=== PATIENT | female | born 2000 | race Caucasian/White ===

== ENCOUNTER 2024-03-25 18:27 | Emergency (ER) | payer OTHER ==
[2024-03-25 19:11] LABS: Urine Bacteria <20 /HPF (<20); Urine Bilirubin NEGATIVE (Negative); Urine Blood Negative (Negative); Urine Clarity Extremely Turbid (Clear); Urine Color Yellow (Yellow); Urine Culture Reflex Order NOT NEEDED; Urine Glucose NEGATIVE (Negative); Urine Ketones NEGATIVE (Negative); Urine Microscopic Reflex YN ORDER UMIC; Urine Mucus Slight /HPF (None Seen); Urine Nitrite NEGATIVE (Negative); Urine Protein 1+ (Negative); Urine RBC <5 /HPF (None Seen); Urine Urobilinogen Normal (Normal); Urine WBC <5 /HPF (<5); Urine WBC Clump Rare /HPF (None Seen)
[2024-03-25] MEDS ORDERED: ONDANSETRON 4 MG/2 ML VIAL ONE (19:32)
[2024-03-25] MEDS ORDERED: CIPROFLOXACIN HCL 500 MG TAB ONE (19:33)
[2024-03-25] MEDS ORDERED: MORPHINE 2 MG/ML SYR ONE (19:33)
[2024-03-25] MEDS ORDERED: NA CHLORIDE 0.9% 1,000 ML ONE (19:33)
[2024-03-25 19:50] LABS: Albumin 3.3 g/dL (3.4-5.0); Albumin/Globulin Ratio 0.6 (1.1-1.8); Bilirubin Total 0.3 mg/dL (0.2-1.0); Globulin 5.4 g/dL (2.3-3.5); Protein, Total 8.7 g/dL (6.4-8.2)
[2024-03-25 19:54] LABS: Absolute Eosinophils 0.1 K/uL (0-0.5); Absolute Lymphocytes (CBC) 2.3 K/uL (0.7-4.9); Absolute Monocytes 0.6 K/uL (0.1-1.3); Absolute Neutrophil 7.2 K/uL (1.8-8.0); Basophils % 0.3 % (0-1.3); Eosinophils % 0.8 % (0-4.4); Hematocrit 37.8 % (36.0-45.0); Hemoglobin 12.2 g/dL (12.0-15.0); Lymphocytes % 22.6 % (15.3-44.8); MCH 23.2 pg (27.0-35.0); MCHC 32.3 g/dL (32.0-36.0); MCV 71.7 fL (80-100); MPV 7.8 fL (7.6-11.3); Monocytes % 5.9 % (3.3-12.3); Neutrophils % 70.4 % (41.7-73.7); Nucleated Red Blood Cells % 0.1 % (0-0); Platelets 404 thou/uL (152-406); RBC Red Blood Cell Count 5.27 M/uL (3.86-4.86); Red Cell Distribution Width 16.7 % (12.1-15.2)
--- NOTE | 2024-03-25 20:45 | EDPHYS ---
Physician Documentation [facility] Name: Shayna Collins Age: 23 yrs Sex: Female : 2000 Arrival Date: 03/25/2024 Time: 18:27 Bed 5 Private MD: ED Physician Ramos Hansen HPI: 03/25 19:02 This 23 yrs old Female presents to ER via Ambulatory with complaints of deangelo Abdominal Pain, Diarrhea. 19:02 The patient presents to the emergency department with diarrhea, that is intermittent, 5 deangelo times since the onset of symptoms, abdominal pain, of the right upper quadrant, left upper quadrant, right lower quadrant and left lower quadrant. Onset: The symptoms/episode began/occurred 1 day(s) ago. Possible causes: unknown. The symptoms are aggravated by nothing. The symptoms are alleviated by nothing. Associated signs and symptoms: Pertinent positives: abdominal pain. Severity of symptoms: At their worst the symptoms were mild in the emergency department the symptoms are unchanged. The patient has not experienced similar symptoms in the past. CONE SEWER: 19:11 Not al5 Historical: - Allergies: 18:47 No Known Allergies; tm6 - PMHx: 18:47 None; tm6 - PSHx: 18:47 None; tm6 - Immunization history:: Flu vaccine is not up to date. - Infectious Disease History:: Denies. - Social history:: Smoking status: Patient denies any tobacco usage or history of. ROS: 19:04 Constitutional: Negative for fever, chills, and weight loss, Eyes: Negative for injury, deangelo pain, redness, and discharge, ENT: Negative for injury, pain, and discharge, Neck: Negative for injury, pain, and swelling, Cardiovascular: Negative for chest pain, palpitations, and edema, Respiratory: Negative for shortness of breath, cough, wheezing, and pleuritic chest pain, Back: Negative for injury and pain, : Negative for injury, bleeding, discharge, and swelling, MS/Extremity: Negative for injury and deformity, Skin: Negative for injury, rash, and discoloration, Neuro: Negative for headache, weakness, numbness, tingling, and seizure, Psych: Negative for depression, anxiety, suicide ideation, homicidal ideation, and hallucinations, Allergy/Immunology: Negative for hives, rash, and allergies, Endocrine: Negative for neck swelling, polydipsia, polyuria, polyphagia, and marked weight changes, Hematologic/Lymphatic: Negative for swollen nodes, abnormal bleeding, and unusual bruising, 19:04 Abdomen/GI: Positive for abdominal pain, diarrhea, Exam: 19:04 Constitutional: This is a well developed, well nourished patient who is awake, alert, deangelo and in no acute distress. Head/Face: Normocephalic, atraumatic. Eyes: Pupils equal round and reactive to light, extra-ocular motions intact. Lids and lashes normal. Conjunctiva and sclera are non-icteric and not injected. Cornea within normal limits. Periorbital areas with no swelling, redness, or edema. ENT: Nares patent. No nasal discharge, no septal abnormalities noted. Tympanic membranes are normal and external auditory canals are clear. Oropharynx with no redness, swelling, or masses, exudates, or evidence of obstruction, uvula midline. Mucous membranes moist. Neck: Trachea midline, no thyromegaly or masses palpated, and no cervical lymphadenopathy. Supple, full range of motion without nuchal rigidity, or vertebral point tenderness. No Meningismus. Chest/axilla: Normal chest wall appearance and motion. Nontender with no deformity. No lesions are appreciated. Cardiovascular: Regular rate and rhythm with a normal S1 and S2. No gallops, murmurs, or rubs. Normal PMI, no JVD. No pulse deficits. Respiratory: Lungs have equal breath sounds bilaterally, clear to auscultation and percussion. No rales, rhonchi or wheezes noted. No increased work of breathing, no retractions or nasal flaring. Abdomen/GI: Soft, non-tender, with normal bowel sounds. No distension or tympany. No guarding or rebound. No evidence of tenderness throughout. Back: No spinal tenderness. No costovertebral tenderness. Full range of motion. Skin: Warm, dry with normal turgor. Normal color with no rashes, no lesions, and no evidence of cellulitis. MS/ Extremity: Pulses equal, no cyanosis. Neurovascular intact. Full, normal range of motion., bilateral aka Neuro: Awake and alert, GCS 15, oriented to person, place, time, and situation. Cranial nerves II-XII grossly intact. Motor strength 5/5 in all extremities. Sensory grossly intact. Cerebellar exam normal. Normal gait. Psych: Awake, alert, with orientation to person, place and time. Behavior, mood, and affect are within normal limits. 19:04 Musculoskeletal/extremity: DVT Exam: No signs of deep vein thrombosis. no pain, no swelling, no tenderness, negative Homans' sign noted on exam, no appreciated bluish discoloration, no erythema, no increased warmth, Vital Signs: 18:46 BP 160 / 118; Pulse 102; Resp 19; Temp 98.9(O); Pulse Ox 98% on R/A; Weight 109.77 kg; tm6 Height 5 ft. 4 in. ; Pain 10/10; 19:29 BP 137 / 81; Pulse 87; Resp 16; Pulse Ox 97% on R/A; al5 19:30 BP 147 / 87; Pulse 85; Resp 18; Pulse Ox 98% on R/A; al5 19:45 BP 133 / 87; Pulse 78; Resp 16; Pulse Ox 98% on R/A; al5 20:00 BP 135 / 76; Pulse 79; Resp 17; Pulse Ox 99% on R/A; al5 21:01 BP 131 / 82; Pulse 76; Resp 17; Pulse Ox 98% ; cp4 18:46 Body Mass Index 41.54 (109.77 kg, 162.56 cm) tm6 18:46 Pain Scale: Adult tm6 MDM: 18:30 Medical Screening Exam initiated deangelo 19:05 Differential diagnosis: Nonspecific abd pain, gastritis, cholecystitis, pancreatitis, deangelo viral gastroenteritis, gastroenteritis, Cholelithiasis. Data reviewed: vital signs, nurses notes, lab test result(s). Consideration of Admission/Observation Escalation of care including admission/observation considered. I considered the following discharge prescriptions or medication management in the emergency department Medications were administered in the Emergency Department. See MAR. Test considered but Not performed: CT: no ct abd/pel. Historians other than the Patient: Parent: mom very well informed. Care significantly affected by the following chronic conditions: Obesity. 03/25 18:30 Order name: CBC with Diff; Complete Time: 20:42 [facility] 03/25 20:42 Interpretation: Normal except: RBC 5.27; MCV 71.7; MCH 23.2; RDW 16.7. cp 03/25 18:30 Order name: CMP; Complete Time: 20:42 [facility] 03/25 18:30 Order name: Lipase; Complete Time: 20:42 [facility] 03/25 18:30 Order name: Test, Urine; Complete Time: 19:22 [facility] 03/25 18:30 Order name: Urinalysis w/ reflexes; Complete Time: 19:22 [facility] 03/25 18:30 Order name: IV Saline Lock; Complete Time: 19:29 [facility] 03/25 18:30 Order name: Labs collected and sent; Complete Time: 19:29 [facility] Administered Medications: 19:42 Drug: NS 0.9% IV 1000 ml IV at 1 bolus Per protocol; to be given as a bolus over 60 al5 minutes Route: IV; Rate: 1 bolus; Site: left antecubital; 21:03 Follow up: Response: No adverse reaction; IV Status: Completed infusion cp4 19:42 Drug: morphine IVP or IV 2 mg IVP once over 4 mins Route: IVP; Infused Over: 4 mins; al5 Site: left antecubital; 20:31 Follow up: Response: No adverse reaction; Pain is decreased al5 19:42 Drug: Ciprofloxacin PO 500 mg PO once Route: PO; al5 20:31 Follow up: Response: No adverse reaction al5 19:43 Drug: Ondansetron IVP 4 mg IVP once; over 2 minutes Route: IVP; Site: left antecubital; al5 20:31 Follow up: Response: No adverse reaction; Nausea is decreased al5 20:31 Not Given (patient no longer in painn): morphineor iv 2 mg IVP once over 4 mins al5 Disposition Summary: 03/25/24 20:44 Discharge Ordered Notes: Location: Home cp Problem: new cp Symptoms: have improved cp Condition: Stable cp Diagnosis - Abdominal pain, Generalized cp - Diarrhea, unspecified cp - UTI/ Urinary tract infection, site not specified cp Followup: deangelo - With: Private Physician - When: 2 - 3 days - Reason: Recheck today's complaints, Continuance of care, Re-evaluation by your physician Followup: deangelo - With: Luis aNgy DO - When: 2 - 3 days - Reason: Recheck today's complaints, Continuance of care, Re-evaluation by your physician Followup: deangelo - With: Evie Gonzales MD - When: 2 - 3 days - Reason: Recheck today's complaints, Re-evaluation by your physician Discharge Instructions: - Discharge Summary Sheet deangelo - Abdominal Pain, Adult deangelo - Food Choices to Help Relieve Diarrhea, Adult deangelo - Diarrhea, Adult deangelo - Urinary Tract Infection, Adult deangelo - Urinary Tract Infection, Adult, [id number] deangelo - Abdominal Pain, Adult, [id number] deangelo Forms: - Medication Reconciliation Form cp - Antibiotic Education cp - Prescription Opioid Use cp - Patient Portal Instructions cp - Leadership Thank You Letter cp Prescriptions: - ondansetron 4 mg Oral Tablet,disintegrating - take 1 tablet ORAL route 3 times per day prn nausea/ vomiting; 20 tablet; deangelo Refills: 0, Product Selection Permitted - Pepcid 20 mg Oral tablet - take 1 tablet ORAL route every 12 hours for 21 days; 42 tablet; Refills: 0, deangelo Product Selection Permitted - Cipro 500 mg Oral tablet - take 1 tablet ORAL route every 12 hours for 5 days; 10 tablet; Refills: 0, deangelo Product Selection Permitted - dicyclomine 20 mg Oral tablet - take 1 tablet ORAL route 4 times per day; 28 tablet; Refills: 0, Product deangelo Selection Permitted Signatures: Dispatcher [employer] EDMS Ramos Hansen MD MD cha Page, Corey, PA PA cp Zachary Azul, RN RN tm6 Ros Hairston RN RN al5 Dawna Olson cp4 Corrections: (The following items were deleted from the chart) 18:31 18:31 CBC+H.LAB.BRZ ordered. EDMS EDMS 18:31 18:31 COMPREHENSIVE METABOLIC PANEL+C.LAB.BRZ ordered. EDMS EDMS 18:31 18:31 LIPASE+C.LAB.BRZ ordered. EDMS EDMS 18:31 18:31 Test, Urine+UC.LAB.BRZ ordered. EDMS EDMS 18:31 18:31 Urinalysis+U.LAB.BRZ ordered. EDMS EDMS
--- NOTE | 2024-03-25 20:45 | ER ---
Nurse's Notes [facility] Name: Shayna Collins Age: 23 yrs Sex: Female : 2000 Arrival Date: 03/25/2024 Time: 18:27 Bed 5 Private MD: Diagnosis: Abdominal pain, Generalized;Diarrhea, unspecified;UTI/ Urinary tract infection, site not specified Presentation: 03/25 18:46 Chief complaint: Patient states: starting yesterday with nausea, diarrhea, abdominal tm6 pain. Pain is sharp and across entire abdomen. Coronavirus screen: Client denies travel out of the [place] in the last 14 days. Ebola Screen: Patient negative for fever greater than or equal to 101.5 degrees Fahrenheit, and additional compatible Ebola Virus Disease symptoms Patient denies exposure to infectious person. Patient denies travel to an Ebola-affected area in the 21 days before illness onset. No symptoms or risks identified at this time. Initial Sepsis Screen: Does the patient meet any 2 criteria? HR > 90 bpm. Initial Sepsis Screen: Does the patient have a suspected source of infection? No. Patient's initial sepsis screen is negative. Risk Assessment: Do you want to hurt yourself or someone else? Patient reports no desire to harm self or others. Onset of symptoms was March 24, 2024. 18:46 Method Of Arrival: Ambulatory tm6 18:46 Acuity: VIRIDIANA 3 tm6 Triage Assessment: 18:47 General: Appears in no apparent distress. Behavior is calm, cooperative. Pain: tm6 Complains of pain in abdomen Pain currently is 10 out of 10 on a pain scale. EENT: No signs and/or symptoms were reported regarding the EENT system. Neuro: Level of Consciousness is awake, alert, obeys commands, Oriented to person, place, time, situation. Cardiovascular: Patient's skin is warm and dry. Respiratory: Airway is patent Respiratory effort is even, unlabored, Respiratory pattern is regular, symmetrical. GI: Abdomen is round Reports lower abdominal pain, upper abdominal pain, diarrhea, nausea. : No signs and/or symptoms were reported regarding the genitourinary system. Derm: No signs and/or symptoms reported regarding the dermatologic system. Musculoskeletal: No signs and/or symptoms reported regarding the musculoskeletal system. MANAGER SOCIAL RESPONSIBILITY: 19:11 Not al5 Historical: - Allergies: 18:47 No Known Allergies; tm6 - PMHx: 18:47 None; tm6 - PSHx: 18:47 None; tm6 - Immunization history:: Flu vaccine is not up to date. - Infectious Disease History:: Denies. - Social history:: Smoking status: Patient denies any tobacco usage or history of. Screenin:55 [facility] ED Fall Risk Assessment (Adult) History of falling in the last 3 months, ph including since admission No falls in past 3 months (0 pts) Confusion or Disorientation No (0 pts) Intoxicated or Sedated No (0 pts) Impaired Gait No (0 pts) Mobility Assist Device Used No (0 pt) Altered Elimination No (0 pt) Score/Fall Risk Level 0 - 2 = Low Risk Oriented to surroundings, Maintained a safe environment, Hourly rounding (assess needs \T\ fall precautionary measures) done. Abuse screen: Denies threats or abuse. Denies injuries from another. Nutritional screening: No deficits noted. Tuberculosis screening: No symptoms or risk factors identified. Assessment: 18:54 General: Appears. ph 18:54 General: Appears in no apparent distress. comfortable, well groomed, Behavior is calm, ph cooperative, appropriate for age. Pain: Complains of pain in abdomen. Neuro: Level of Consciousness is awake, alert, obeys commands, Oriented to person, place, time, situation. Cardiovascular: Capillary refill < 3 seconds in bilateral fingers Patient's skin is warm and dry. Respiratory: Airway is patent Respiratory effort is even, unlabored, Respiratory pattern is regular, symmetrical. GI: Bowel sounds present X 4 quads. Abd is soft X 4 quads Reports lower abdominal pain, upper abdominal pain, diarrhea, nausea, Patient currently denies vomiting. Derm: Skin is pink, warm \T\ dry. Musculoskeletal: Circulation, motion, and sensation intact. Range of motion: intact in all extremities. 19:28 Reassessment: Patient appears in no apparent distress at this time. No changes from al5 previously documented assessment. Patient and/or family updated on plan of care and expected duration. Pain level reassessed. Patient is alert, oriented x 3, equal unlabored respirations, skin warm/dry/pink. Vital Signs: 18:46 BP 160 / 118; Pulse 102; Resp 19; Temp 98.9(O); Pulse Ox 98% on R/A; Weight 109.77 kg; tm6 Height 5 ft. 4 in. ; Pain 10/10; 19:29 BP 137 / 81; Pulse 87; Resp 16; Pulse Ox 97% on R/A; al5 19:30 BP 147 / 87; Pulse 85; Resp 18; Pulse Ox 98% on R/A; al5 19:45 BP 133 / 87; Pulse 78; Resp 16; Pulse Ox 98% on R/A; al5 20:00 BP 135 / 76; Pulse 79; Resp 17; Pulse Ox 99% on R/A; al5 21:01 BP 131 / 82; Pulse 76; Resp 17; Pulse Ox 98% ; cp4 18:46 Body Mass Index 41.54 (109.77 kg, 162.56 cm) tm6 18:46 Pain Scale: Adult tm6 ED Course: 18:29 Patient arrived in ED. im 18:30 Ramos Hansen MD is Attending Physician. deangelo 18:35 Sydni Bryant, RN is Primary Nurse. ph 18:47 Triage completed. tm6 18:47 Arm band placed on right wrist. tm6 18:56 Patient has correct armband on for positive identification. Bed in low position. Call ph light in reach. Side rails up X 1. Pulse ox on. NIBP on. Door closed. Noise minimized. 19:20 Provided Education on: plan of care. al5 19:28 No provider procedures requiring assistance completed. Inserted saline lock: 22 gauge al5 in left antecubital area, using aseptic technique. Blood collected. Flushed with 10 mL NS. 20:44 Luis Nagy DO is Referral Physician. cp 20:44 Evie Gonzales MD is Referral Physician. cp 21:02 intact, bleeding controlled, No redness/swelling at site. Pressure dressing applied. cp4 Administered Medications: 19:42 Drug: NS 0.9% IV 1000 ml IV at 1 bolus Per protocol; to be given as a bolus over 60 al5 minutes Route: IV; Rate: 1 bolus; Site: left antecubital; 21:03 Follow up: Response: No adverse reaction; IV Status: Completed infusion cp4 19:42 Drug: morphine IVP or IV 2 mg IVP once over 4 mins Route: IVP; Infused Over: 4 mins; al5 Site: left antecubital; 20:31 Follow up: Response: No adverse reaction; Pain is decreased al5 19:42 Drug: Ciprofloxacin PO 500 mg PO once Route: PO; al5 20:31 Follow up: Response: No adverse reaction al5 19:43 Drug: Ondansetron IVP 4 mg IVP once; over 2 minutes Route: IVP; Site: left antecubital; al5 20:31 Follow up: Response: No adverse reaction; Nausea is decreased al5 20:31 Not Given (patient no longer in painn): morphineor iv 2 mg IVP once over 4 mins al5 Medication: 18:56 VIS not applicable for this client. ph Outcome: 20:44 Discharge ordered by MD. cp 21:02 Discharged to home ambulatory, cp4 21:02 Condition: stable 21:02 Discharge instructions given to patient, family, Instructed on discharge instructions, follow up and referral plans. medication usage, Demonstrated understanding of instructions, follow-up care, medications, Prescriptions given X 4, 21:03 Patient left the ED. cp4 Signatures: Ramos Hansen MD MD cha Hall, Patricia, RN RN Ramos Junior PA PA Tami Jc Christina cp4 Zachary Azul, RN RN tm6 Ros Hairston RN RN al5
[2024-03-25 21:17] VITALS: TEMP 98.9
[2024-03-25 21:26] VITALS: BP 131/82; O2SAT 98
== END 2024-03-25 21:03 | disposition home or self-care (01) ==
LOC: ER 18:27
DX: R10.84 Generalized abdominal pain (principal); R19.7 Diarrhea, unspecified; N39.0 Urinary tract infection, site not specified
CPT/HCPCS: 96361; 85025; 81001; 36415; 81025; 83690; 80053; 96375; 96374; 99284; J2270; J2405; J7030